=== PATIENT | female | born 1950 | race Caucasian/White ===

== ENCOUNTER 2020-06-04 08:48 | Outpatient (CLI) | payer OTHER, SELFPAY ==
--- NOTE | ~2020-06-04 | DEXA_ITS ---
Bone Density Report Name: Naye Garcia Age: 70 Sex: Female Ethnicity: White Date of : 1950 Indication: postmenopausal; height loss; hysterectomy; Referring Provider: ELISABETH BELL Study: Bone densitometry was performed. Exam Date: June 04, 2020 Accession number: [id number] Bone Density: Region BMD T-score Z-score Classification AP Spine (L1-L4) 1.258 1.9 4.1 Normal World Health Organization criteria for BMD impression classify patients as: Normal (T-score at or above -1.0), Osteopenia (T-score between -1.0 and -2.5), or Osteoporosis (T-score at or below -2.5). Previous Exams: Region Exam Age BMD T-score BMD Change BMD Change Date g/cm2 vs Baseline vs Previous AP Spine(L1-L4) 06/04/2020 70 1.258 1.9 0.003(0.2%) 0.003(0.2%) 01/20/2017 66 1.254 1.9 *Denotes significance at 95% confidence level, LSC for AP Spine = 0.022 g/cm2 Clinical Information Provided by Patient: Has used the following medications: Vitamin D Has the following medical conditions: Hysterectomy Patient maximum height was 64.0 Menopause Age: 54 Onset of menses at age 13 Number of children 1 Missed period for more than 6 months in a row Impression: The patient has normal bone mass. No significant bone loss was observed. Discussion: LOW RISK OF FRACTURE; BONE DENSITY IS WELL ABOVE THE MINIMUM DESIRABLE LEVEL AND ABOVE AVERAGE FOR AGE AND SEX AT ALL SKELETAL SITES TESTED. This person's bone density is above expected limits for age and sex. This is rarely clinically significant, but should be pursued if there are significant musculoskeletal complaints. The patient should follow a healthful lifestyle (good nutrition with adequate calcium and vitamin D, and appropriate weight-bearing exercise). Follow-Up: Consider repeating this study in 5 years or sooner if there is some new clinical indication. Reported by: [facility] on 06/04/2020 9:11:00 AM. Reviewed, dictated and finalized at location Anmol MORRIS
== END 2020-06-04 08:49 | disposition home or self-care (01) ==
LOC: ANHIMG 08:54
PROVIDERS: PCP Emergency Medicine; Visit Provider Emergency Medicine
DX: Z78.0 Asymptomatic menopausal state (principal)
CPT/HCPCS: 77080

== ENCOUNTER 2022-11-20 19:38 | Emergency (ER) | payer OTHER, SELFPAY ==
[2022-11-20 19:49] VITALS: BP 120/90; PULSE 92; RESP 20; TEMP 37.1; O2SAT 97
--- NOTE | 2022-11-20 19:51 | ED.URI ---
HPI - URI/Sore Throat General Chief Complaint: Upper Respiratory Infection Stated Complaint: Sinus Time Seen by Provider: 11/20/22 19:52 Source: patient Mode of arrival: ambulatory Limitations: no limitations History of Present Illness HPI Narrative: 72-year-old female presents with complaint of sinus congestion, bilateral ear pressure, postnasal drainage, sore throat, cough for 3 days. Did a home COVID test yesterday and it was negative. Afebrile. Taking Claritin daily and an [id number] Robitussin. Reports that rib cage are sore from coughing. Denies chest pain or shortness of breath. All systems reviewed and negative except as noted above. Related Data Home Medications Medication Instructions Recorded Confirmed estradiol 0.01% (0.1 mg/gram) 1 applic vaginal DIRECTED 11/20/22 11/20/22 vaginal cream hydrochlorothiazide 12.5 mg tablet 12.5 mg PO DAILY 11/20/22 11/20/22 losartan 50 mg tablet 50 mg PO DAILY 11/20/22 11/20/22 rosuvastatin 10 mg tablet 10 mg PO DAILY 11/20/22 11/20/22 Allergies Allergy/AdvReac Type Severity Reaction Status Date / Time No Known Allergies Allergy Verified 11/20/22 19:47 Review of Systems Review of Systems: CONSTITUTIONAL: Denies fever, chills, or sweats. EYES: Denies visual changes, redness, or discharge. ENT: reports rhinorrhea, congestion, sore throat, or otalgia. CARDIOVASCULAR: Denies chest pain, palpitations, or edema. RESPIRATORY: Reports cough or dyspnea. GASTROINTESTINAL: Denies abdominal pain, nausea, vomiting, or diarrhea. GENITOURINARY: Denies dysuria or hematuria. SKIN: Denies rash or itching. MUSCULOSKELETAL: Denies back pain, joint pain, or myalgia. NEUROLOGIC: Denies headache, numbness, or weakness. PSYCHIATRIC: Denies anxiety or depression. All other systems reviewed are negative, except as documented in HPI. PMFSH Comments At time of signature, agree with nursing past medical, surgical, social and family history. There is no relevant family history pertinent to the presenting complaint. Exam Narrative: GENERAL: This is a well-nourished, well-developed patient, in no apparent distress. HEAD: normocephalic, atraumatic. EYES: PERRL. Sclera clear/white. Vision is grossly intact. EARS: External ears normal, auditory canals clear and without drainage, erythema, fluid right TM. Left TM is normal. NOSE: External nose normal with Clear nasal drainage erythema to both nares with swelling. THROAT: Mucous membranes moist, posterior pharynx clear. NECK: Neck supple, non-tender without lymphadenopathy, masses or thyromegaly. CARDIOVASCULAR: Regular rate and rhythm without murmurs, gallops, or rubs. RESPIRATORY: Clear to auscultation. Breath sounds equal bilaterally. No wheezes, rales, or rhonchi. SKIN: warm, Dry, intact with no suspicious lesions or rash, good texture and turgor. NEURO: awake, alert, and oriented to person, place and time. There were no obvious focal neurologic abnormalities. EXTREMITIES: No joint tenderness, effusion, or edema noted. Course Course Level of Care: Express Care Visit Vital Signs Vital signs: Vital Signs Temperature 37.1 C 11/20/22 19:49 Pulse Rate 92 11/20/22 19:49 Respiratory Rate 20 11/20/22 19:49 Blood Pressure 120/90 11/20/22 19:49 Pulse Oximetry 97 11/20/22 19:49 Oxygen Delivery Room Air 11/20/22 19:49 Temperature 37.1 C 11/20/22 19:49 Pulse Rate 92 11/20/22 19:49 Respiratory Rate 20 11/20/22 19:49 Blood Pressure 120/90 11/20/22 19:49 Pulse Oximetry 97 11/20/22 19:49 Oxygen Delivery Room Air 11/20/22 19:49 Reviewed MDM - URI/Sore Throat MDM Narrative Medical decision making narrative: Patient is aware of diagnosis, understands and agrees to treatment plan. Anticipatory guidance given. Patient agrees to follow-up as directed and is aware of reasons to seek care at the emergency department. Portions of this record may have been created with voice recognit
== END 2022-11-20 20:01 | disposition home or self-care (01) ==
PROVIDERS: Emergency Provider Nurse Practitioner Family; PCP Emergency Medicine
DX: J06.9 Acute upper respiratory infection, unspecified (principal); H65.01 Acute serous otitis media, right ear; E78.00 Pure hypercholesterolemia, unspecified; I10 Essential (primary) hypertension; K21.9 Gastro-esophageal reflux disease without esophagitis; M19.90 Unspecified osteoarthritis, unspecified site
CPT/HCPCS: 99203; G0463

== ENCOUNTER 2023-01-05 07:51 | Outpatient (CLI) | payer OTHER, SELFPAY ==
--- NOTE | ~2023-01-05 | DEXA_ITS ---
Bone Density Report Name: JR QUINONEZ Age: 72 Sex: Female Ethnicity: White Date of : 1950 Indication: postmenopausal; screening for osteoporosis; Referring Provider: ELISABETH BELL Study: Bone densitometry was performed. Exam Date: January 05, 2023 Accession number: [id number] Bone Density: Region BMD T-score Z-score Classification AP Spine(L1-L4) 1.215 1.5 3.9 Normal World Health Organization criteria for BMD impression classify patients as: Normal (T-score at or above -1.0), Osteopenia (T-score between -1.0 and -2.5), or Osteoporosis (T-score at or below -2.5). Clinical Information Provided by Patient: Menopause Age: 59 Impression: The patient has normal bone mass. Discussion: LOW RISK OF FRACTURE; BONE DENSITY IS WELL ABOVE THE MINIMUM DESIRABLE LEVEL AND ABOVE AVERAGE FOR AGE AND SEX AT ALL SKELETAL SITES TESTED. This person's bone density is above expected limits for age and sex. This is rarely clinically significant, but should be pursued if there are significant musculoskeletal complaints. The patient should follow a healthful lifestyle (good nutrition with adequate calcium and vitamin D, and appropriate weight-bearing exercise). Follow-Up: Consider repeating this study in 5 years or sooner if there is some new clinical indication. Reported by: RAFAEL on 01/05/2023 8:18:00 AM. Reviewed, dictated and finalized at location A. [facility]
== END 2023-01-05 07:52 | disposition home or self-care (01) ==
PROVIDERS: PCP Emergency Medicine; Visit Provider Emergency Medicine
DX: Z78.0 Asymptomatic menopausal state (principal)
CPT/HCPCS: 77080

== ENCOUNTER 2023-06-24 02:03 | Day surgery (SDC) | payer OTHER, SELFPAY ==
[2023-06-14 13:48] VITALS: BMI 36.1
--- NOTE | 2023-06-23 20:21 | PM.HPGS ---
History of Present Illness History of Present Illness Consent: Risks, benefits, and alternatives have been discussed and questions answered. Patient agrees to proceed with procedure. Chief complaint: hx colon polyps Narrative: Naye Garcia is a 73 year old female who has had polyps inthe past, including her last exam in 2017 Review of Systems Review of Systems: All systems reviewed & are unremarkable except as noted in HPI and below PMFSH Past Medical History Medical History Vitamin D deficiency disease Family History Family History Grandparent Hypertension Social History Social History Smoking status: Never smoker Second hand tobacco smoke exposure: No Alcohol intake: current Drinks per week: 1 Alcohol use details: wine monthly Substance use: never Substance use type: does not use Living arrangements: with family Spiritual care concerns: No Meds Home Medications and Allergies Home Medications Medication Instructions Recorded Confirmed Type biotin 10,000 mcg capsule 10,000 mcg PO DAILY 06/14/23 06/14/23 History zinc 50 mg tablet 50 mg PO DAILY 06/14/23 06/14/23 History buspirone 10 mg tablet 10 mg PO BID #60 tabs 06/21/23 Rx Allergies Allergy/AdvReac Type Severity Reaction Status Date / Time adhesive tape Allergy Intermediate REDNESS Verified 06/24/23 08:17 AND ITCHING aspirin AdvReac Unknown BOTHERS Verified 06/24/23 08:17 STOMACH Exam Const: General: alert Orientation/consciousness: patient oriented x3 Resp: Auscultation: clear to auscultation bilaterally Cardio: Rhythm: regular rhythm GI: GI Palp: Yes Soft to palpation and No Tenderness to palpation present (GI) Neuro: General: patient oriented x3 Assessment and Plan Assessment and plan (1) Colon cancer screening: Code(s): Z12.11 - Encounter for screening for malignant neoplasm of colon Status: Acute Assessment and Plan: Colonoscopy with possible biopsy or polypectomy or cautery or injection of substances.
[2023-06-24 08:19] VITALS: BP 137/73; PULSE 88; RESP 18; TEMP 36.1; O2SAT 96
[2023-06-24] MEDS: LACTATED RINGERS 1,000 ML 150 ML IV CONT (08:32)
--- NOTE | 2023-06-24 08:46 | P.PNAN_ITS ---
Anes - Initial Pre Proc Eval Procedure: Operation Date: 06/24/23 09:30 Proposed Procedures p Colonoscopy - Cal Hall MD Date/Time: 06/24/23 08:46 Surgeon: Cal Hall MD Pre Op Diagnosis: hx colon polyps Patient Data Age: 73 Gender: F Height: 1.63 m Weight: 99.1 kg Last Vital Signs Temp 97 F L 06/24/23 08:19 Pulse 88 06/24/23 08:19 Resp 18 06/24/23 08:19 BP 137/73 06/24/23 08:19 Pulse Ox 96 06/24/23 08:19 O2 Del Method Room Air 06/24/23 08:19 Allergies Allergy/AdvReac Type Severity Reaction Status Date / Time adhesive tape Allergy Intermediate REDNESS Verified 06/24/23 08:17 AND ITCHING aspirin AdvReac Unknown BOTHERS Verified 06/24/23 08:17 STOMACH Home Medications Medication Instructions Recorded Confirmed Type biotin 10,000 mcg capsule 10,000 mcg PO DAILY 06/14/23 06/14/23 History zinc 50 mg tablet 50 mg PO DAILY 06/14/23 06/14/23 History buspirone 10 mg tablet 10 mg PO BID #60 tabs 06/21/23 Rx Patient hx anesthesia problems: none Family hx anesthesia problems: none Results Review: All pre-operative results and documents have been reviewed as part of the pre- operative evaluation. [facility] Past Medical History Medical History Vitamin D deficiency disease Family History Family History Grandparent Hypertension Social History Social History Smoking status: Never smoker Second hand tobacco smoke exposure: No Alcohol intake: current Drinks per week: 1 Alcohol use details: wine monthly Substance use: never Substance use type: does not use Living arrangements: with family Spiritual care concerns: No Anes - Eval Final PreProcedure Day of Procedure 06/24/23 08:46 Patient weight: normal Heart: regular rate and rhythm Lungs: clear to auscultation Airway: Mallampati scale class II Neurological: alert and oriented Last oral intake: >/= 8 hours ASA classification: III Emergent: no Anesthetic plan: proceed Anesthesia type and monitoring: general GIVS and standard monitoring Results Review: All pre-operative results and documents have been reviewed as part of the pre-o perative evaluation. Informed Consent: The patient's anesthetic plan and its attendant risks and benefits were discussed with the patient/family/POA. Questions were solicited and answers provided to the satisfaction of the patient/family/POA.
[2023-06-24 09:46] VITALS: BP 110/66; PULSE 74; RESP 20; O2SAT 97
[2023-06-24 09:56] VITALS: BP 120/58; PULSE 72; RESP 20; O2SAT 99
[2023-06-24 10:06] VITALS: BP 133/68; PULSE 70; RESP 20; O2SAT 97
== END 2023-06-24 10:20 | disposition home or self-care (01) ==
PROVIDERS: PCP Emergency Medicine; Visit Provider Internal Medicine Gastroenterology
PROC: 0DJD8ZZ Inspection of Lower Intestinal Tract, Via Natural or Artificial Opening Endoscopic (ICD-10-PCS; CPT 45378; principal; 2023-06-24 09:30)
DX: Z12.11 Encounter for screening for malignant neoplasm of colon (principal); E55.9 Vitamin D deficiency, unspecified; D12.0 Benign neoplasm of cecum; Z79.82 Long term (current) use of aspirin
CPT/HCPCS: 45385; 45381; 88305; J2704; J7120

== ENCOUNTER 2024-11-24 10:48 | Outpatient (CLI) | payer OTHER, SELFPAY ==
--- NOTE | ~2024-11-24 | XR_ITS ---
[id number] Ordering provider: Doug Taylor MD History: . M25.561 - Pain in right knee, limping, no injury . Comparison: None. FINDINGS: BONES: No acute fracture or dislocation. Post operative changes in the mid right femur. 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 JOINT SPACES: Severe narrowing of the medial compartment. SOFT TISSUES: Normal. IMPRESSION: No acute osseous abnormality right knee. Severe osteoarthritic changes. Reviewed, dictated and finalized at location A. [facility]
== END 2024-11-24 10:49 | disposition home or self-care (01) ==
PROVIDERS: PCP Emergency Medicine; Visit Provider Emergency Medicine
DX: M17.11 Unilateral primary osteoarthritis, right knee (principal)
CPT/HCPCS: 73560

== ENCOUNTER 2025-09-25 01:17 | Day surgery (SDC) | payer OTHER, SELFPAY ==
[2025-09-13 10:51] VITALS: BMI 34.4
--- OUTSIDE RECORDS SUMMARY | 2025-09-25 01:20 | XMS_ITS | Clinical Summary ---
Author Organization [facility] Address [address] [place] [id number] Care Team Providers Care Predatory Game Hunter Name Role Phone Unavailable Primary Care Provider Unavailabl e Social History Tobacco Use Types Packs/Day Years Used Date Smoking Tobacco: Never Assessed Comments Unknown Sex and Gender Information Value Date Recorded Sex Assigned at Not on file Legal Sex Female 7:24 PM CDT Gender Identity Not on file Sexual Orientation Not on file Plan of Treatment Health Maintenance Due Date Last Done Comments Hepatitis C 1968 DTaP, Tdap and Td Vaccines ( 1 - Tdap) 1968 Pneumococcal Vaccine: 50+ Years (1 of 1 - PCV) 1999 Zoster Vaccines (1 of 2) 1999 Annual Medicare Wellness Visit 2014 Dexa Scan (General) 2014 RSV Immunization or 60+ Years (1 - 1-dose 75+ series) 2024 COVID-19 Vaccine (3 - 2024-2 6 season) 2025 02/07/2021, 01/17/2021 Influenza Adult (#1) 2025 Hepatitis A Vaccines Aged Out No long er eligible based on patient's age to complete this topic Meningococcal B Vaccine Aged Out No l onger eligible based on patient's age to complete this topic Meningococcal Vaccine Aged Out No byron chelle eligible based on patient's age to complete this topic RSV Immunizations Under 20 Months Aged Out No longer eligible b ased on patient's age to complete this topic Insurance [employer]
--- OUTSIDE RECORDS SUMMARY | 2025-09-25 01:20 | XMS_ITS | Clinical Summary ---
Author Organization [facility] Address [address] [place] [address] Care Team Providers Care Recruiting Assistant Name Role Phone Doug Taylor MD Primary Care Provider [phone] Source Comments [facility] Affiliates and Associated Physician Practices is amultiple site organization consisting of ambulatory clinics and hospital sitesin [place], [place], [place] and [place]. This disclosure is being madepursuant to the Care Everywhere program and may not contain all information available regarding this patient. Last updated 18.[facility] Allergies Active Allergy Reactions Criticality Noted Date Comments Adhesive Sensitivity Rash Medium 07/29/2016 Aspirin GI Discomfort Low 07/26/2016 Medications * Be aware that medications may not be up to date on this document. Alwaysverify current medications with the patient. [place]-3 Fatty Acids (FISH OIL) 1200 MG Take 1,200 mg by mouth once daily Active Glucosamine-Ch ondroitin (OSTEO BI-FLEX REGULAR STRENGTH) 250-200 MG Take 250 mg by mouth once daily Active acetaminophen (TYLENOL) 325 MG tablet Take 1 Tab by mouth every 6 hours as needed for Fever or Pain Maximum allowable Acetaminophen amount = 4 Grams (4000 mg) / 24 hours. 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 Family History Medical History Relation Name Comments Heart Failure Father Relation Name Status Comments Brother Alive Father Mother Alive Sister Alive Social History Tobacco Use Types Packs/Day Years Used Date Smoking Tobacco: Never Smokeless Tobacco: Never Tobacco Cessation:Counseling Given: Not Answered Alcohol Use Standard Drinks/Week Comments Yes 1 (1 standard drink = 0.6 oz pur e alcohol) occasional PHQ-2 Answer Date Recorded Patient Health Questionnaire-2 Score 0 04/10/2025 Comments No Sex and Gender Information Value Date Recorded Sex Assigned at Not on file Legal Sex Female 1:17 AM CDT Gender Identity Not on file Sexual Orientation Not on file Last Filed Vital Signs Vital Sign Reading Time Taken Comments Blood Pressure 152/71 08/02/2016 7:00 AM CDT Pulse 76 10/27/2016 1:23 PM LACQUER [employer] Temperature 36.8 C (98.3 F) 08/02/2016 3:25 AM CDT Respiratory Rate 16 08/02/2016 3:25 AM CDT Oxygen Saturation 97% 08/02/2016 7:00 AM CDT Inhaled Oxygen Concentration - - Weight 93.4 kg (206 lb) 04/05/2018 11:57 AM CDT Height 162.6 cm (5' 4) 04/05/2018 11:57 AM CDT Body Mass Index 35.36 04/05/2018 11:57 AM CDT Plan of Treatment Health Maintenance Due Date Last Done Comments BONE DENSITY TESTING 1950 MEDICARE AWV 12 MONTHS 1950 HEPATITIS C SCREENING 03/26/1967 DTAP/TDAP/TD VACCINES (1 - Tdap) 1968 PNEUMOCOCCAL VACCINE 50+ (1 of 1 - PCV) 1999 ZOSTER VACCINE (1 of 2) 1999 Respiratory Syncytial Virus (RSV) Vaccine Pt: or over 60 yrs (1 - 1-dose 75+ series) 2024 COVID-19 VACCINE (1 - 2023-2 5 season) 2025 INFLUENZA VACCINE (#1) 2025 DEPRESSION SCREENING Completed 04/11/2025 HEPATITIS B VACCINE Aged Out No longe r eligible based on patient's age to complete this topic HIB VACCINE Aged Out No longer eligi ble based on patient's age to complete this topic HPV VACCINE Aged Out No longer eligi ble based on patient's age to complete this topic MENINGOCOCCAL (Group B) VACC INE SHARED DECISION-MAKING Aged Out No longer eligibl e based on patient's age to complete this topic MENINGOCOCCAL GROUPS A/C/Y/W VACCINE Aged Out No longer eligible b ased on patient's age to complete this topic Medical Devices Implanted Type Area Physicist Nuclear Device Identifier Shelf Expiration Date Model / Serial / Lot Cbl Accord Troch W/Clmp 2.0mm Implanted:Qty: 5 on 07/29/2016 by Raghav Gastelum MD at [facility] Right: Hip [employer] 02/15/2026 [id number] / / [id number] Cbl Accord Troch W/Clmp 2.0mm Implanted:Qty: 1 on 07/29/2016 by Raghav Gastelum MD at [facility] Right: Hip [employer] 07/21/2025 [id number] / / [id number] Redapt Femoral Size 14-15 Modular Sleeve Extra Small Implanted:Qty: 1 on 07/29/2016 by Raghav Gastelum MD at [facility] Right: Hip [employer] 07/21/2022 [id number] / / [id number] Redapt Femoral Modular Sleeved Size 14 300mm Length Femoral Component Implanted:Qty: 1 on 07/29/2016 by Raghav Gastelum MD at [facility] Right: Hip [employer] 07/21/2022 [id number] / / [id number] Hd Fem Oxinium 11/04 +0 36mm Implanted:Qty: 1 on 07/29/2016 by Raghav Gastelum MD at [facility] Right: Hip [employer] 11/01/2025 [id number] / / [id number] High Offset Neck 11/04 Taper Implanted:Qty: 1 on 07/29/2016 by Raghav Gastelum MD at [facility] Right: Hip [employer] 09/29/2025 [id number] / / [id number] Putty Sameer-3 Dbm 10cc Implanted:Qty: 1 on 07/29/2016 by Raghav Gastelum MD at [facility] Right: Hip [employer] 03/19/2017 [id number] / / [id number] Insurance [employer] MEDICARE [employer] MEDICARE [facility] MEDICARE [facility] Care Address: [address] [place] [phone] Advance Directives * Full Code (Latest Code Status on File) Date Activated Date Inactivated Comments 07/29/2016 3:38 PM 08/02/2016 1:21 PM * Full Code Date Activated Date Inactivated Comments 07/26/2016 3:45 AM 07/29/2016 3:38 PM Care Teams Recruiting Assistant Relationship Specialty Start Date End Date Doug Taylor MD [address] [place] [id number] PCP - General 06/20/21
--- OUTSIDE RECORDS SUMMARY | 2025-09-25 01:20 | XMS_ITS | Patient Health Record ---
Author Organization [facility] [employer] Address [address] [facility] [address] [facility] [address] [place] [address] Support Name Relationship Address Phone JR QUINONEZ Guarantor Unknown Unavailable Reason For Referral No Information Plan Of Treatment No Information
--- OUTSIDE RECORDS SUMMARY | 2025-09-25 01:21 | XMS_ITS | Clinical Summary ---
Author Organization [facility] Address [address] [place] [address] Care Team Providers Care Oil Gas And Pipe Tester Name Role Phone Doug Taylor MD Primary Care Provide r Allergies Active Allergy Reactions Criticality Noted Date Comments Adhesive Tape-Silicones Rash Medium 04/04/2019 Aspirin Other (See comments) Low Upset stomach Medications rosuvastatin (CRESTOR) 10 mg tablet Take 1 tablet (10 mg total) by mouth every morning Active cholecalciferol (VITAMIN D-3) 2,000 unit tablet Take 1 tablet (2,000 Units total) by mouth every morning Active triamcinolone (KENALOG) 0.1 % ointment Pea-sized amount to affected vulva twice weekly 30 g 2 05/24/2025 Active estradioL (ESTRACE) 0.01 % (0.1 mg/gram) vaginal creamIndication s:Atrophy of Vulva Apply to vulva two times per week. 42.5 g 3 05/22/2025 Active fluconazole (DIFLUCAN) 150 mg tablet Take one tablet PO; repeat with second tablet in 3 days. 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 09/21/2022 Assessment & Plan (09/21/2022 9:34 AM CDT): -new pt c/o dryness and watering both eyes (OU) after wearing corneal GPs x 1 year (+)corneal gas permeable (GP) wearer x ~60 years; current lenses 3 years old -does not have backup specs at home besides sunglasses that are 10 years old; new MRx given to pt today -pt reports she has been followed for MEAGHAN recently; (+)snoring and wakes up many times throughout the night (-)sleeping with fan on or using CPAP at this time (-)denies trying any gtts (+)SPEE inferior 1/3 cornea both eyes (OU) today (+)moderately lax lids both eyes (OU) -rx erythromycin joshua at bedtime (qhs) both eyes (OU) -rec pataday every day (qd) both eyes (OU); coupon given -RTC 6 weeks for ant seg check or sooner prn PVD (posterior vitreous detachment), left 2021 Assessment & Plan (09/21/2022 9:33 AM CDT): -pt reports longstanding floater left eye (OS) x 10+ years (-)retinal holes/breaks/tears/detachments today -s/s retinal detachment (RD) discussed with pt today; RTC MARK if any symptoms arise -follow Primary hypertension 08/12/2022 Assessment & Plan (08/12/2022 5:09 PM CDT): Probably adequate control however I asked her to assess her blood pressure at home daily for the next 2 weeks to make sure that she is optimally controlled less than 130 systolic. In the meantime I would continue losartan 50 MEAGHAN (obstructive sleep apnea) 08/12/2022 Assessment & Plan (08/12/2022 5:09 PM CDT): Strong suspicion for moderate to severe sleep apnea. 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 12/06/2019 Morbid obesity 09/12/2019 Endometrial cancer 03/27/2019 Cancer Staging:Pathologic:FIGO Stage IB(pT1b) - Signed by Esdras Carrera MD on 04/25/2019 Pathologic: Signed by Esdras Carrera MD on 04/25/2019 Acute meniscal tear of knee, left, initial encou nter 03/22/2018 Status post total hip replacement, left 10/27/20 16 Dislocation of internal right hip prosthesis 02/2016 Patient encounter status 06/18/2016 Overview (02/26/2017): Postoperative follow-up Acute on chronic cholecystitis 06/18/2016 Overview (02/26/2017): Acute and chronic cholecystitis Encounters Date Type Department Care Team Description 07/03/2025 1:30 PM CDT - 07/03/2025 11:59 PM CDT Hospital Encounter [facility] Medical Office Bldg 1 Breast [facility] [address] [place] [address] Screening mammogram, encounter for Discharge Disposition: Discharge to home or self care from Last 3 Months Surgical History Surgery Date Site/Laterality Comments HIP ARTHROPLASTY Bilateral 2006 L and 2008 R SECTION 11/22/1973 - 11/21/1974 CHOLECYSTECTOMY 11/22/2015 - 11/21/2016 DILATION AND CURETTAGE OF UTERUS ERCP 06/22/2016 HYSTERECTOMY 04/11/2019 Lap Ab Robotic Assisted Medical History Medical History Date Comments Hyperlipidemia Hypertension Endometrial cancer Family History Medical History Relation Name Comments Heart attack Father Anesthesia problems Neg Hx Relation Name Status Comments Father Social History Tobacco Use Types Packs/Day Years Used Date Smoking Tobacco: Never Smokeless Tobacco: Never Tobacco Cessation:Counseling Given: Not Answered Alcohol Use Standard Drinks/Week Comments Yes 0 (1 standard drink = 0.6 oz pur e alcohol) less than weekly Comments No Sex and Gender Information Value Date Recorded Sex Assigned at Not on file Legal 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 Gender Identity Not on file Sexual Orientation Not on file Obstetrics History Para Term AB IAB SAB Ectopic Multiple Livin g Live Births 1 1 1 Date Outcome GA Total Labor Labor/2nd/3rd Weight Sex Type Anes PTL Emy A1 A5 Name Clin Term Last Filed Vital Signs Vital Sign Reading Time Taken Comments Blood Pressure 128/88 05/22/2025 10:38 AM CDT Pulse 71 05/22/2025 10:38 AM CDT Temperature 36.6 C (97.9 F) 05/22/2025 10:38 AM CDT Respiratory Rate 16 04/13/2023 1:49 PM CDT Oxygen Saturation 98% 05/22/2025 10:38 AM CDT Inhaled Oxygen Concentration - - Weight 97.1 kg (214 lb) 07/03/2025 1:34 PM CDT Height 160 cm (5' 3) 07/03/2025 1:34 PM CDT Body Mass Index 37.91 07/03/2025 1:34 PM CDT Plan of Treatment Health Maintenance Due Date Last Done Comments Depression Screening 1950 Fall Risk Assessment 1950 Hepatitis C Screening 1950 Osteoporosis Screening-Bone Density Scan 1950 DTaP/Tdap/Td Vaccine (1 - Tdap) 1960 Hepatitis B Screening 1967 Pneumococcal vaccine 65+ (1 of 1 - PCV) 1999 Zoster Vaccine (1 of 2) 1999 Well Visit 65+ 2014 Covid-19 Vaccine (3 - 2024-2 6 season) 2025 02/07/2021, 01/17/2021 Influenza Vaccine (#1) 2025 Colon Cancer Screening-CT Colonography Discontinued 06/15/2013 Colon Cancer Screening-Colonoscopy Discontinued 06/15/2013 Colon Cancer Screening-DNA Stool Discontinued 06/15/20 13 Colon Cancer Screening-FIT Discontinued 06/15/2013 Colon Cancer Screening-FOBT Discontinued 06/15/2013 Colon Cancer Screening-Sigmoidoscopy Discontinued 06/15/2013 Colorectal Cancer Screening Discontinued Breast Cancer Screening-Mammogram Discontinued 07/03/2025, 02/22/2024, 12/08/2022, Additional history exists Medical Devices Implanted Type Area Content Development Specialist Device Identifier Shelf Expiration Date Model / Serial / Lot Thr Bilateral: Hip Procedures Procedure Name Priority Date/Time Associated Diagnosis Comments SCREENING MAMMOGRAM BILATERAL W TRUNG Schedule Routine, Read Routine (OP Routine) 07/03/2025 1:46 PM CDT Screening mammogram, encounter for COLONOSCOPY REPORT 06/15/2013 from Last 3 Months or Most Recently Relevant to Health Maintenance Results * Screening Mammogram Bilateral W Trung (07/03/2025 1:46 PM CDT) Anatomical Region Laterality Modality Breast Bilateral Mammography Impressions 07/03/2025 1:52 PM CDT BI-RADS ATLAS category (overall): 2 - Benign There is no mammographic evidence of malignancy. A 1 year screening mammogram is recommended. The patient has been or will be contacted. We recommend annual screening mammography for women at average risk of breast cancer beginning at age 40, based on guidelines of the [employer] (ACR Practice Parameter for the Performance of Screening and Diagnostic Mammography) and [employer]etric[employer]. For women with and elevated risk of breast cancer, please refer to the ACR Practice Parameter for specific screening recommendations. The patient will be entered into a reminder system with a target due date of 1 year for her next screening exam. Narrative 07/03/2025 1:52 PM CDT Screening Mammogram Bilateral W Trung: 07/03/25 The study was acquired using full field digital technology and interpreted from soft copy. 2D digital mammographic views, as well as 3D digital tomosynthesis were performed in the CC and MLO projections. CLINICAL: Screening mammogram, encounter for. Medical history includes endometrial cancer. No known family history of breast cancer. No comparisons were made when reading this study. BREAST TISSUE: The breasts are almost entirely fatty. FINDINGS: There are benign calcifications and stable small benign masses in both breasts. There is no new suspicious finding in either breast on mammogram. us Self Screening Mammogram IMG MAMMO PROCEDURES Fi nal Result * COLONOSCOPY REPORT (06/15/2013) Anatomical Region Laterality Modality Other Narrative 06/15/2013 Ordered by an unspecified provider. us Historical Provider MD SALAZAR PROCEDURE ORDERABLES F inal Result from Last 3 Months or Most Recently Relevant to Health Maintenance Insurance [facility] Advance Directives For more information, please contact: [phone] * Full Code (Latest Code Status on File) Date Activated Date Inactivated Comments 04/11/2019 7:38 PM 04/12/2019 2:41 PM Care Teams Oil Gas And Pipe Tester Relationship Specialty Start Date End Date Doug Taylor MD [address] [place] [address] PCP - General 01/06/19
--- OUTSIDE RECORDS SUMMARY | 2025-09-25 01:21 | XMS_ITS | Clinical Summary ---
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 Gender Identity Not on file Sexual Orientation Not on file Plan of Treatment Health Maintenance Due Date Last Done Comments DTAP/TDAP/TD VACCINES (1 - Tdap) 1968 PNEUMOCOCCAL VACCINE 50+ YEARS (1 of 1 - PCV) 03/30/19 99 ZOSTER VACCINE (1 of 2) 1999 OSTEOPOROSIS SCREENING 2014 RSV VACCINE (60+ or ) (1 - 1-dose 75+ series) 2024 INFLUENZA VACCINE (#1) 2025 Insurance [facility] [employer] PPO [id number] Care Teams Power Plant Operator Apprentice Relationship Specialty Start Date End Date Ubaldo Caicedo [address] [facility] [address] [place] [address] PCP - General 12/19/09
[2025-09-25 10:24] VITALS: BP 163/77; PULSE 77; RESP 18; TEMP 35.9; O2SAT 100
[2025-09-25] MEDS: LACTATED RINGERS 1,000 ML 150 ML IV CONT (10:35)
--- NOTE | 2025-09-25 10:58 | WPDANESEPPF ---
Anes - Initial Pre Proc Eval Procedure: Operation Date: 09/25/25 11:30 Proposed Procedures p Screening Colonoscopy - Armando Degroot MD Date/Time: 09/25/25 10:58 Surgeon: Armando Degroot MD Pre Op Diagnosis: Screening Patient Data Age: 75 Gender: F Height: 1.63 m Weight: 93.7 kg Last Vital Signs Temp 35.9 C L 09/25/25 10:24 Pulse 77 09/25/25 10:24 Resp 18 09/25/25 10:24 BP 163/77 H 09/25/25 10:24 Pulse Ox 100 09/25/25 10:24 O2 Del Method Room Air 09/25/25 10:24 Allergies Allergy/AdvReac Type Severity Reaction Status Date / Time adhesive tape Allergy Intermediate REDNESS Verified 09/25/25 10:22 AND ITCHING aspirin AdvReac Unknown BOTHERS Verified 09/25/25 10:22 STOMACH Home Medications ?Medication ?Instructions ?Recorded ?Confirmed ?Type biotin 10,000 mcg capsule 10,000 mcg PO DAILY 06/14/23 09/25/25 History zinc 50 mg tablet 50 mg PO DAILY 06/14/23 09/25/25 History cholecalciferol (vitamin D3) 1,250 1,250 mcg PO WEEKLY #12 caps 04/14/24 09/25/25 Rx mcg (50,000 unit) capsule rosuvastatin 10 mg tablet See Rx Instructions .Route 07/16/25 09/25/25 Rx .COMPLEX #90 tabs sertraline 50 mg tablet 50 mg PO DAILY #90 tabs 08/06/25 09/25/25 Rx Patient hx anesthesia problems: none Family hx anesthesia problems: none Results Review: All pre-operative results and documents have been reviewed as part of the pre-operative evaluation. [facility] Past Medical History Medical History Vitamin D deficiency disease Family History Family History Grandparent Hypertension Social History Social History Smoking status: Never smoker Second hand tobacco smoke exposure: No Alcohol intake: never Drinks per week: 1 Alcohol use details: wine monthly Substance use: never Substance use type: does not use Do You Feel Safe in your Home?: Yes Lack of Transportation: No Lack of Food: Never True Current Housing: Decline to Answer Concerned About Future Housing: Decline to Answer Difficulty Paying Gas/Electric Bills: Decline to Answer Difficulty Paying for Meds: Decline to Answer Currently Unemployed: Decline to Answer Education: Decline to Answer Difficulty w/ Childcare or Family Care: Decline to Answer Living arrangements: with family Spiritual care concerns: No Anes - Eval Final PreProcedure Day of Procedure 09/25/25 10:58 Patient weight: obese Heart: regular rate and rhythm Lungs: clear to auscultation Airway: Mallampati scale class III Neurological: alert and oriented Last oral intake: >/= 8 hours ASA classification: III Emergent: no Anesthetic plan: proceed Anesthesia type and monitoring: general GIVS and standard monitoring Results Review: All pre-operative results and documents have been reviewed as part of the pre-operative evaluation. Informed Consent: The patient's anesthetic plan and its attendant risks and benefits were discussed with the patient/family/POA. Questions were solicited and answers provided to the satisfaction of the patient/family/POA.
--- NOTE | 2025-09-25 11:00 | PM.HPGS ---
History of Present Illness History of Present Illness Consent: Risks, benefits, and alternatives have been discussed and questions answered. Patient agrees to proceed with procedure. Chief complaint: Screening Narrative: Naye Garcia is a 75 year old female with colon polyp about 3 years ago Review of Systems Review of Systems: All systems reviewed & are unremarkable except as noted in HPI and below PMFSH Past Medical History Medical History (Updated 09/25/25 @ 11:01 by Armando Degroot MD) Colon polyp Vitamin D deficiency disease Family History Family History Grandparent Hypertension Social History Social History Smoking status: Never smoker Second hand tobacco smoke exposure: No Alcohol intake: never Drinks per week: 1 Alcohol use details: wine monthly Substance use: never Substance use type: does not use Do You Feel Safe in your Home?: Yes Lack of Transportation: No Lack of Food: Never True Current Housing: Decline to Answer Concerned About Future Housing: Decline to Answer Difficulty Paying Gas/Electric Bills: Decline to Answer Difficulty Paying for Meds: Decline to Answer Currently Unemployed: Decline to Answer Education: Decline to Answer Difficulty w/ Childcare or Family Care: Decline to Answer Living arrangements: with family Spiritual care concerns: No Meds Home Medications and Allergies Home Medications ?Medication ?Instructions ?Recorded ?Confirmed ?Type biotin 10,000 mcg capsule 10,000 mcg PO DAILY 06/14/23 09/25/25 History zinc 50 mg tablet 50 mg PO DAILY 06/14/23 09/25/25 History cholecalciferol (vitamin D3) 1,250 1,250 mcg PO WEEKLY #12 caps 04/14/24 09/25/25 Rx mcg (50,000 unit) capsule rosuvastatin 10 mg tablet See Rx Instructions .Route 07/16/25 09/25/25 Rx .COMPLEX #90 tabs sertraline 50 mg tablet 50 mg PO DAILY #90 tabs 08/06/25 09/25/25 Rx Allergies Allergy/AdvReac Type Severity Reaction Status Date / Time adhesive tape Allergy Intermediate REDNESS Verified 09/25/25 10:22 AND ITCHING aspirin AdvReac Unknown BOTHERS Verified 09/25/25 10:22 STOMACH Vital Signs Vital Signs - 24 hr 09/25/25 10:24 Temperature 96.6 F L Pulse Rate 77 Respiratory Rate 18 Blood Pressure 163/77 H Pulse Oximetry 100 Oxygen Delivery Room Air Exam Const: General: comfortable and no acute distress HENMT: Face/Nose/Sinus: Normal nares present Resp: Auscultation: clear to auscultation bilaterally Cardio: Rate: regular rate Rhythm: regular rhythm GI: Inspection: non-distended GI Palp: Yes Soft to palpation Extrem: General: normal to inspection Psych: Mental Status: mental status grossly normal Assessment and Plan Assessment and plan (1) Colon polyp: Code(s): K63.5 - Polyp of colon Status: Acute Assessment and Plan: colonoscopy
--- NOTE | 2025-09-25 11:19 | S_PTH ---
PATIENT: Naye Garcia LOC: [facility]#:[id number] AGE/SX: 75/F ROOM: RE09/25/[address]: Armando Degroot MD : 1950 BED: DIS: 09/25/2025 SPEC #: [id number] RECD: 09/25/25 13:21 STATUS: MIKALA REAdela #: [id number] KEKE: 09/25/25 11:[address]: Armando Degroot DEPT: [facility] Surgical RECD BY: Dereje Spence ENTERED: 09/25/25 13:21 SP TYPE: Surgical OTHR DR: Doug Taylor MD Tissues: A - Colon Polypectomy B - Colon Polypectomy C - Colon Polypectomy Procedures: Hematoxylin and Eosin Stain Gross and Microscopic Level 4
[2025-09-25 11:22] VITALS: BP 85/50; PULSE 64; RESP 19; O2SAT 98
[2025-09-25 11:32] VITALS: BP 99/62; PULSE 63; RESP 13; O2SAT 100
[2025-09-25 11:42] VITALS: BP 129/70; PULSE 69; RESP 19; O2SAT 100
== END 2025-09-25 11:55 | disposition home or self-care (01) ==
PROVIDERS: PCP Emergency Medicine; Referring Provider Emergency Medicine; Visit Provider Internal Medicine Gastroenterology
PROC: 0DJD8ZZ Inspection of Lower Intestinal Tract, Via Natural or Artificial Opening Endoscopic (ICD-10-PCS; CPT 45378; principal; 2025-09-25 11:30)
DX: Z12.11 Encounter for screening for malignant neoplasm of colon (principal); D12.0 Benign neoplasm of cecum; D12.2 Benign neoplasm of ascending colon; D12.3 Benign neoplasm of transverse colon; K64.8 Other hemorrhoids; E55.9 Vitamin D deficiency, unspecified; E66.9 Obesity, unspecified; Z68.35 Body mass index [BMI] 35.0-35.9, adult
CPT/HCPCS: 45385; 88305; J2003; J2704; J7120